=== PATIENT | female | born 1970 | race Caucasian/White ===

== ENCOUNTER 2018-06-25 16:48 | Emergency (ER) | payer SELFPAY ==
[2018-06-25] MEDS ORDERED: Acetaminophen 500 MG TAB ONE (17:14)
== END 2018-06-25 17:20 | disposition home or self-care (01) ==
LOC: MADERS 16:48
DX: R51 Headache (principal); F17.210 Nicotine dependence, cigarettes, uncomplicated
CPT/HCPCS: 99283

== ENCOUNTER 2018-07-01 15:16 | Emergency (ER) | payer BC ==
[2018-07-01] MEDS ORDERED: Ketorolac Tromethamine 60 MG/2 ML VIAL ONE (15:35)
== END 2018-07-01 16:00 | disposition home or self-care (01) ==
LOC: MADERS 15:16
DX: M62.838 Other muscle spasm (principal); F17.210 Nicotine dependence, cigarettes, uncomplicated
CPT/HCPCS: 96372; J1885